=== PATIENT | female | born 1995 | race American Indian/Alaskan Native ===

== ENCOUNTER 2018-08-10 13:04 | Emergency (ER) | payer MEDICAID ==
[2018-08-10 13:15] VITALS: BP 128/85; PULSE 94; RESP 18; TEMP 98.2; O2SAT 100
--- NOTE | 2018-08-10 13:46 | C.PDOC ---
History Of Present Illness 23 y/o female, sexually active, presents to ED for recurrent herpes outbreak since 2 days ago. Patient's first outbreak was 8 years ago and was seen here in the ER at that time. Today she complains of irritation and itching to the genital area. Patient denies using any medications or cream. Has a history of one fallopian tube removal from an ectopic . Time Seen by Provider: 08/10/18 13:28 Chief Complaint (Nursing): Female Genitourinary History Per: Patient History/Exam Limitations: no limitations Onset/Duration Of Symptoms: Days Current Symptoms Are (Timing): Still Present Past Medical History Reviewed: Historical Data, Nursing Documentation, Vital Signs Vital Signs: Last Vital Signs Temp 98.2 F 08/10/18 13:09 Pulse 94 H 08/10/18 13:09 Resp 18 08/10/18 13:09 BP 128/85 08/10/18 13:09 Pulse Ox 100 08/10/18 13:09 - Medical History PMH: Sexually Transmitted Disease (herpes) Denies: Chronic Kidney Disease Family History: States: No Known Family Hx - Social History Hx Alcohol Use: No Hx Substance Use: No - Immunization History Hx Tetanus Toxoid Vaccination: Yes Hx Influenza Vaccination: Yes Hx Pneumococcal Vaccination: Yes Review Of Systems Except As Marked, All Systems Reviewed And Found Negative. Constitutional: Negative for: Fever, Chills Genitourinary: Positive for: Other (Genital irritation and itchiness) Physical Exam - Physical Exam Appears: Non-toxic, No Acute Distress Skin: Warm, Dry Head: Atraumatic, Normacephalic Eye(s): bilateral: Normal Inspection Oral Mucosa: Moist Neck: Supple Pelvic: Other (Patient refused pelvic exam. As per patient, has genital rash with erythema) Neurological/Psych: Oriented x3, Normal Speech Gait: Steady ED Course And Treatment O2 Sat by Pulse Oximetry: 100 (RA) Pulse Ox Interpretation: Normal Medical Decision Making Medical Decision Making: Plan: --Motrin 600 mg PO --Zovirax 400 mg PO Disposition - Disposition Referrals: [facility] [place]] [facility] [Outside] [facility] [place] [Outside] Disposition: HOME/ ROUTINE Disposition Time: 14:03 Condition: GOOD Additional Instructions: take acyclovir as directed and apply the cream six times a day. Prescriptions: Acyclovir 400 mg PO TID #15 tablet Acyclovir 5% [Zovirax 5% Oint] 15 applic EXT Q3H #1 tube Bacitracin Ointment [Bacitracin] 30 gm TOP BID #1 tube Ibuprofen [Motrin] 600 mg PO Q6 #20 tab Instructions: Genital Herpes (DC) Forms: [employer] ([employer]), Work Excuse - Clinical Impression Clinical Impression: Genital herpes - Scribe Statement The provider has reviewed the documentation as recorded by the Dain Rodriges Provider Attestation: All medical record entries made by the Dain were at my direction and personally dictated by me. I have reviewed the chart and agree that the record accurately reflects my personal performance of the history, physical exam, medical decision making, and the department course for this patient. I have also personally directed, reviewed, and agree with the discharge instructions and disposition.
[2018-08-10] MEDS ORDERED: Acyclovir 5% Oint (15 gm) EXT ONE (13:49)
== END 2018-08-10 14:03 | disposition home or self-care (01) ==
LOC: C.ER 13:04
DX: A60.00 Herpesviral infection of urogenital system, unspecified (principal)